=== PATIENT | female | born 1940 | race Caucasian/White ===

== ENCOUNTER 2022-11-22 11:50 | Emergency (ER) | payer MEDICARE ==
--- NOTE | 2022-11-22 12:24 | ED Physician Documentation ---
PD HPI HEADACHE - Stated complaint Stated Complaint: VOMITING,SARGENT,GEN WEAKNESS - Chief complaint Chief Complaint: General - History obtained from History obtained from: Patient - History of Present Illness Timing - onset: Today (Onset this morning of feeling of nausea and has had repetitive forceful vomiting. Subsequently she did develop some headache after vomiting several times. No abrupt this to the headache. No diarrhea. Some abdominal fullness but no focal pain. She had mild malaise and cough and fatigue yesterday) Timing - onset during: Rest Timing - duration: Hours Timing - details: Abrupt onset, Still present Review of Systems Constitutional: reports: Chills (yesterday). denies: Fever Nose: reports: Congestion (yeterday) Throat: denies: Sore throat Cardiac: denies: Chest pain / pressure Respiratory: denies: Dyspnea, Cough GI: reports: Nausea, Vomiting. denies: Diarrhea, Hematemesis Neurologic: reports: Generalized weakness. denies: Near syncope, Altered mental status PD PAST MEDICAL HISTORY - Past Medical History Cardiovascular: Hypertension Neuro: Migraines Endocrine/Autoimmune: None GI: Other (prior abd surgery for "twisted intestine.") - Present Medications Home Medications: Ambulatory Orders Medication Instructions Recorded Confirmed Buprenorphine 1 each TD .WEEKLY 11/22/22 11/22/22 Celecoxib [Celebrex] 200 mg PO DAILY 11/22/22 11/22/22 Esomeprazole Magnesium [Nexium 20 mg PO DAILY 11/22/22 11/22/22 24Hr] Fluticasone Propion/Salmeterol 2 puffs INH DAILY 11/22/22 11/22/22 [Fluticasone-Salmeterol 250-50] HYDROcod/ACETAM 5/325 [[place] 5/325] 1 ea PO Q6H PRN #10 tablet 11/22/22 Milnacipran HCl [Savella] 50 mg PO DAILY 11/22/22 11/22/22 Ondansetron Odt [Zofran] 4 mg TL Q6H PRN #10 tablet 11/22/22 Prochlorperazine [Compazine] 5 mg PO Q6H PRN #12 tablet 11/22/22 Simvastatin [Zocor] 40 mg PO HS 11/22/22 11/22/22 - Allergies Allergies/Adverse Reactions: Allergies Allergy/AdvReac Type Severity Reaction Status Date / Time gabapentin Allergy Hallucinati Verified 11/22/22 12:01 ons oxycodone Allergy Hallucinati Verified 11/22/22 12:01 ons PD ED PE NORMAL - Vitals Vital signs reviewed: Yes - General General: Alert and oriented X 3, Well developed/nourished, Other (Having repetitive nausea with dry heaving and production of some gastric and bilious fluid. No hematemesis.) - HEENT HEENT: Moist mucous membranes, Pharynx benign - Neck Neck: Supple, no meningeal sign, No adenopathy - Cardiac Cardiac: RRR, No murmur - Respiratory Respiratory: Clear bilaterally - Abdomen Abdomen: Soft, Non distended, No organomegaly, Other (tender some epigastric area without guarding nor percussion tenderness. ). No: Normal bowel sounds (diminished) Results - Vitals Vitals: Vital Signs - 24 hr 11/22/22 11/22/22 11/22/22 12:01 14:03 15:31 Temperature 36.7 C 36.6 C Heart Rate 85 85 86 Respiratory 16 13 18 Rate Blood Pressure 150/80 H 147/101 H 137/83 H O2 Saturation 99 96 100 Oxygen O2 Source Room air - Labs Labs: Laboratory Tests 11/22/22 11/22/22 11/22/22 12:21 12:21 12:21 WBC 6.9 RBC 3.96 L Hgb 12.4 Hct 37.7 MCV 95.2 MCH 31.3 H MCHC 32.9 RDW 12.1 Plt Count 239 MPV 9.4 Neut # (Auto) 5.2 Lymph # (Auto) 1.2 L [place] # (Auto) 0.5 Eos # (Auto) 0.0 Baso # (Auto) 0.0 Absolute Nucleated RBC 0.00 Nucleated RBC % 0.0 Sodium 138 Potassium 3.8 Chloride 104 Carbon Dioxide 25 Anion Gap 9.0 BUN 16 Creatinine 0.8 Estimated GFR (MDRD) 69 L Glucose 113 H Calcium 9.9 Magnesium 2.0 Total Bilirubin 1.0 AST 24 ALT 17 Alkaline Phosphatase 54 Total Protein 6.8 Albumin 4.4 Globulin 2.4 Albumin/Globulin Ratio 1.8 Lipase 20 Urine Color Urine Clarity Urine pH Ur Specific [place] Urine Protein Urine Glucose (UA) Urine Ketones Urine Occult Blood Urine Nitrite Urine Bilirubin Urine Urobilinogen Ur Leukocyte Esterase Ur Microscopic Review Urine Culture Comments Nasal Adenovirus (PCR) Nasal B. parapertussis DNA (PCR) Nasal Coronavir 229E PCR Nasal Coronavir HKU1 PCR Nasal Coronavir NL63 PCR Nasal Coronavir OC43 PCR Nasal Enterovir/Rhinovir PCR Nasal Influenza B PCR Nasal Influenza A PCR Nasal Parainfluen 1 PCR Nasal Parainfluen 2 PCR Nasal Parainfluen 3 PCR Nasal Parainfluen 4 PCR Nasal RSV (PCR) Nasal B.pertussis DNA PCR Nasal C.pneumoniae (PCR) [place] Human Metapneumo PCR Nasal M.pneumoniae (PCR) Nasal SARS-CoV-2 (PCR) 11/22/22 11/22/22 12:45 14:31 WBC RBC Hgb Hct MCV MCH MCHC RDW Plt Count MPV Neut # (Auto) Lymph # (Auto) [place] # (Auto) Eos # (Auto) Baso # (Auto) Absolute Nucleated RBC Nucleated RBC % Sodium Potassium Chloride Carbon Dioxide Anion Gap BUN Creatinine Estimated GFR (MDRD) Glucose Calcium Magnesium Total Bilirubin AST ALT Alkaline Phosphatase Total Protein Albumin Globulin Albumin/Globulin Ratio Lipase Urine Color LT. YELLOW Urine Clarity CLEAR Urine pH 8.0 H Ur Specific [place] 1.010 Urine Protein NEGATIVE Urine Glucose (UA) NEGATIVE Urine Ketones TRACE Urine Occult Blood NEGATIVE Urine Nitrite NEGATIVE Urine Bilirubin NEGATIVE Urine Urobilinogen 0.2 (NORMAL) Ur Leukocyte Esterase NEGATIVE Ur Microscopic Review NOT INDICATED Urine Culture Comments NOT INDICATED Nasal Adenovirus (PCR) NOT DETECTED Nasal B. parapertussis DNA (PCR) NOT DETECTED Nasal Coronavir 229E PCR NOT DETECTED Nasal Coronavir HKU1 PCR NOT DETECTED Nasal Coronavir NL63 PCR NOT DETECTED Nasal Coronavir OC43 PCR NOT DETECTED Nasal Enterovir/Rhinovir PCR NOT DETECTED Nasal Influenza B PCR NOT DETECTED Nasal Influenza A PCR NOT DETECTED Nasal Parainfluen 1 PCR NOT DETECTED Nasal Parainfluen 2 PCR NOT DETECTED Nasal Parainfluen 3 PCR NOT DETECTED Nasal Parainfluen 4 PCR NOT DETECTED Nasal RSV (PCR) NOT DETECTED Nasal B.pertussis DNA PCR NOT DETECTED Nasal C.pneumoniae (PCR) NOT DETECTED [place] Human Metapneumo PCR NOT DETECTED Nasal M.pneumoniae (PCR) NOT DETECTED Nasal SARS-CoV-2 (PCR) NOT DETECTED - Rads (name of study) head CT Relevant Findings:: Prelim report reviewed, EMP independent interpretation of test (no acute process) CT abd/pel Relevant Findings:: Prelim report reviewed (no acute abdominal process), EMP independent interpretation of test PD Medical Decision Making - ED course Complexity details: considered differential (Abrupt onset of nausea and vomiting this morning. She had some feeling of malaise and aches yesterday and thought she might be getting a viral illness. No diarrhea today. After several episodes of vomiting forcefully she did develop some headache in the frontal area. ), d/w patient Reviewed Lab Results: white count is good at 6.9. Creatinine is 0.8 and electrolytes are normal range. CT head without acute findings. CT abdomena nd pelvis is without any acute changes. Presume thus that the abrupt vomiting related to food related or more likely viral GE. She is feeling much better with IV fluids as well as Zofran for nausea and Toradol for pains. Still with some headache, and given dose of Morphine with good improvement there asw ell. She is taking sips of water without problems. Feels able to be discharged. ED course: For nausea and vomiitng, concern would be for more serious such as acute focal infection, GB problem, bowel obstruction, perforated viscus,e tc. May be as simp le as viral GE. For the headache, ti had onset when forceful vomiting with history of HTN. Will get CT head to ensure no focal bleeds, tumors, etc. Departure - Departure Disposition: 01 Home, Self Care Clinical Impression: Nausea and vomiting, Headache, Acute upper abdominal pain Condition: Stable Record reviewed to determine appropriate education?: Yes Instructions: ED Nausea Vomiting Prescriptions: Prochlorperazine [Compazine] 5 mg PO Q6H PRN #12 tablet PRN Reason: Nausea / Vomiting HYDROcod/ACETAM 5/325 [[place] 5/325] 1 ea PO Q6H PRN #10 tablet PRN Reason: Pain Ondansetron Odt [Zofran] 4 mg TL Q6H PRN #10 tablet PRN Reason: Nausea / Vomiting Comments: Your head CT scan does not show any signs of acute abnormalities such as bleeding, swelling, tumors. Presume the headache is from muscle tension or even some pressure related to the vomiting. It could have induced a migraine as well. I would anticipate this improving through the day. Your CT of your abdomen does not show any signs of obstructions or acute infectious process. Presumption would be of viral enteritis or food related. Commonly these will last just a day or 2 and improved. Small frequent fluids and see how you do. I wrote prescriptions for ondansetron nausea medicine to use every 6 hours if needed. Use Tylenol every 4-6 hours if needed for pains. Add hydrocodone if needed for worse pain. For your migraines, you can continue with the medication that you have at home. Alternatively or in addition you can use the Compazine nausea medicine along with some Tylenol as these often will help with migraines as well. I sent new prescriptions to the [facility] in [place]. Forms: PCP List Discharge Date/Time: 11/22/22 15:33
[2022-11-22] MEDS ORDERED: SODIUM CHLORIDE 0.9% 1,000 ML IV STA (12:37)
[2022-11-22] MEDS ORDERED: KETOROLAC 15 MG/ML VIAL IVP STA (12:37)
[2022-11-22] MEDS ORDERED: ONDANSETRON 4 MG/2 ML VIAL IVP STA (12:37)
[2022-11-22 12:39] LABS: BASOPHILS % (AUTO) 0.1 %; EOSINOPHILS % (AUTO) 0.1 %; HCT - HEMATOCRIT 37.7 % (37.0-47.0); HGB - HEMOGLOBIN 12.4 g/dL (12.0-16.0); LYMPHOCYTES # (AUTO) 1.2 10^3/uL (1.5-3.5); LYMPHOCYTES % (AUTO) 17.5 %; MEAN CORPUSCULAR HEMOGLOBIN 31.3 pg (27.0-31.0); MEAN CORPUSCULAR HGB CONC 32.9 g/dL (32.0-36.0); MEAN CORPUSCULAR VOLUME 95.2 fL (81.0-99.0); MEAN PLATELET VOLUME 9.4 fL (7.9-10.8); MONOCYTES # (AUTO) 0.5 10^3/uL (0.0-1.0); MONOCYTES % (AUTO) 6.6 %; NEUTROPHILS # (AUTO) 5.2 10^3/uL (1.5-6.6); NEUTROPHILS % (AUTO) 75.6 %; PLT - PLATELET COUNT 239 10^3/uL (130-450); RED BLOOD COUNT 3.96 10^6/uL (4.20-5.40); RED CELL DISTRIBUTION WIDTH 12.1 % (12.0-15.0); WHITE BLOOD COUNT 6.9 x10^3/uL (4.8-10.8)
[2022-11-22 12:53] LABS: ALBUMIN 4.4 g/dL (3.2-5.5); ALBUMIN/GLOBULIN RATIO 1.8 (1.0-2.2); CALCIUM 9.9 mg/dL (8.5-10.3); CREATININE 0.8 mg/dL (0.6-1.3); POTASSIUM 3.8 mmol/L (3.5-4.5); TOTAL PROTEIN 6.8 g/dL (6.4-8.9)
[2022-11-22] MEDS ORDERED: PROCHLORPERAZINE 10 MG/2 ML VIAL IVP STA (13:50)
[2022-11-22 13:52] LABS: CORONAVIRUS 229E-RESP PCR NOT DETECTED; CORONAVIRUS HKU1-RESP PCR NOT DETECTED; CORONAVIRUS NL63-RESP PCR NOT DETECTED; CORONAVIRUS OC43-RESP PCR NOT DETECTED
[2022-11-22 13:53] LABS: B. PARAPERTUSSIS- RESP PCR PAN NOT DETECTED; B. PERTUSSIS- RESP PCR PANEL NOT DETECTED; C. PNEUMONIAE- RESP PCR PANEL NOT DETECTED; HUMAN METAPNEUMOVIRUS NOT DETECTED; INFLUENZA A- RESP PCR PANEL NOT DETECTED; INFLUENZA B - RESP PCR PANEL NOT DETECTED; M. PNEUMONIAE- RESP PCR PANEL NOT DETECTED; PARAINFLUENZA VIRUS 1 NOT DETECTED; PARAINFLUENZA VIRUS 2 NOT DETECTED; PARAINFLUENZA VIRUS 3 NOT DETECTED; PARAINFLUENZA VIRUS 4 NOT DETECTED; RHINOVIRUS/ENTEROVIRUS NOT DETECTED; RSV- RESP PCR PANEL NOT DETECTED; SARS-CoV-2 -RESP PCR PANEL NOT DETECTED
--- NOTE | 2022-11-22 14:23 | CT Report ---
PROCEDURE: HEAD WO INDICATIONS: acute vomiting and headache TECHNIQUE: Noncontrast 4.5 mm thick angled axial sections acquired from the foramen magnum to the vertex. For r adiation dose reduction, the following was used: automated exposure control, adjustment of mA and/or kV according to patient size. COMPARISON: None. FINDINGS: Image quality: Excellent. The ventricular system and cortical sulci demonstrate atrophy, consistent for patient's stated age. There are areas of hypodensity in the periventricular and subcortical white matter. There is no acut e intra or extra-axial fluid collection. No acute hemorrhage, mass lesion or midline shift. Brainst em is unremarkable. Globes are symmetrical. Sinuses are aerated. Osseous structures are intact. IMPRESSION: 1. No acute intracranial process. 2. Mild atrophy and chronic microvascular ischemic changes. Reviewed by: Augusta Levin MD on 11/22/2022 2:22 PM PDT Approved by: Augusta Levin MD on 11/22/2022 2:22 PM PDT Station ID: [id number]
--- NOTE | 2022-11-22 14:26 | CT Report ---
PROCEDURE: ABDOMEN/PELVIS W INDICATIONS: acute vomiting/ some abd distended CONTRAST: 100ml Optiray 320 TECHNIQUE: After the administration of IV contrast, 5 mm thick sections acquired from the diaphragms to the symp hysis. 5 mm thick coronal and sagittal reformats were acquired. For radiation dose reduction, the f ollowing was used: automated exposure control, adjustment of mA and/or kV according to patient size. COMPARISON: None FINDINGS: Image quality: Excellent. Lung bases and heart: Dependent changes are present within the bases. Minimal left effusion. Liver: No solid mass. Gallbladder and biliary tree: Unremarkable. Spleen: No splenomegaly. Pancreas: No pancreatic ductal dilation. Adrenals: No adrenal nodule. Kidneys and ureters: No hydronephrosis. No renal cystic lesion which requires follow up. No solid mas s. Simple bilateral renal cysts. Bowel and peritoneum: No bowel distension. No pathologic free fluid. Lymph nodes: No central or retroperitoneal adenopathy. Vessels: No infrarenal aortic aneurysm. PELVIS Reproductive organs: Unremarkable. Bladder: No abnormal wall thickening, accounting for underdistension. Pelvic lymph nodes: No pelvic adenopathy by size criteria. Bones: No aggressive osseous abnormality. Other: No significant ventral or inguinal hernia. IMPRESSION: No acute intra-abdominal or pelvic process. Reviewed by: Augusta Levin MD on 11/22/2022 2:25 PM PDT Approved by: Augusta Levin MD on 11/22/2022 2:25 PM PDT Station ID: [id number]
[2022-11-22 14:41] LABS: BILIRUBIN,URINE NEGATIVE (NEGATIVE); GLUCOSE, URINE (UA) NEGATIVE (NEGATIVE); KETONES,URINE (UA) TRACE mg/dL (NEGATIVE); LEUKOCYTE ESTERASE, URINE NEGATIVE (NEGATIVE); NITRITE,URINE NEGATIVE (NEGATIVE); OCCULT BLOOD,URINE NEGATIVE (NEGATIVE); PROTEIN,URINE NEGATIVE (NEGATIVE); UROBILINOGEN,URINE 0.2 (NORMAL) E.U./dL (NORMAL)
[2022-11-22 14:48] LABS: CLARITY,URINE CLEAR (CLEAR)
[2022-11-22] MEDS ORDERED: MORPHINE 2 MG/ML CARPUJECT IVP STA (14:51)
[2022-11-22 15:41] VITALS: BP 137/83; O2SAT 100
== END 2022-11-22 15:33 | disposition home or self-care (01) ==
LOC: ED 11:50
DX: R11.2 Nausea with vomiting, unspecified (principal); R51.9 Headache, unspecified; I10 Essential (primary) hypertension; R10.10 Upper abdominal pain, unspecified; Z20.822 Contact with and (suspected) exposure to COVID-19
CPT/HCPCS: 36415; 80053; 81001; 81003; 83690; 83735; 85025; 87086; 87633; 96374; 96375; 99284